=== PATIENT | female | born 1985 | race Caucasian/White ===

== ENCOUNTER 2019-08-12 18:49 | Inpatient (IN) | payer BC, OTHER ==
[2019-08-12] MEDS ORDERED: Promethazine HCl 25 MG/ML VIAL IM PRN ×3 (19:37→23:59)
[2019-08-12] MEDS ORDERED: hydrALAZINE 20 MG/ML VIAL SLOW IVP PRN ×2 (19:37→23:59)
[2019-08-12] MEDS ORDERED: Ondansetron PF 4 MG/2 ML Vial IVP PRN ×3 (19:37→23:59)
[2019-08-12] MEDS ORDERED: Acetaminophen 500 MG TAB PO PRN (19:37)
[2019-08-12] MEDS ORDERED: Lactated Ringer's 1,000 ML IV SCH (19:45)
--- NOTE | 2019-08-12 19:56 | PDOC.LDHP ---
Labor and Delivery H&P Chief complaint: contractions HPI: 34 y/o G4 3003 ar 40 and 1/7 weeks, previous , Breech, in labor, Cervix at 4cm. Pt is opting for a repeat today. Current gestational age (weeks): 40 Due date: 08/11/19 Grav: 4 Para: 3 Current complications: breech Abnormal US findings: No Current medications: pre-modesta vitamins Previous surgical history: low tranverse CS Allergies/Adverse Reactions: Allergies Allergy/AdvReac Type Severity Reaction Status Date / Time No Known Allergies Allergy Verified 08/12/19 19:18 Social history: none - Physical Exam Vital signs reviewed and normal: yes General: NAD, resting Heart: RRR Lungs: CTAB Abdomen: NTTP Extremeties: no edema FHT: category 1 - Assessment L&D Assessment: term patient in labor - Plan Plan: admit to L&D, to OR for section
[2019-08-12 19:58] LABS: Hemoglobin 13.6 g/dL (12.0-16.0); Mean Corpuscular HGB CONC 34.8 g/dL (32.0-36.0); Mean Corpuscular Volume 86.2 fL (78.0-98.0); Mean Platelet Volume 8.7 fL (7.4-10.4); Platelet Count 176 thou/uL (130-400); RBC Distribution Width 12.6 % (11.5-14.5); Red Blood Cell (RBC) Count 4.52 mill/uL (4.20-5.40)
[2019-08-12] MEDS ORDERED: CEFAZOLIN 2 GM in Premix Bag 1 BAG IVPB SCH (20:00)
[2019-08-12] MEDS ORDERED: Bicitra 30 ML UDCUP PO SCH (20:00)
[2019-08-12] MEDS ORDERED: MORPHINE 5 MG/10 ML PF VIAL ONE (20:16)
[2019-08-12] MEDS ORDERED: Fentanyl 100 MCG/2 ML VIAL ONE (20:16)
[2019-08-12] MEDS ORDERED: EPHEDRINE 25 MG/5 ML SYRINGE ONE (20:17)
[2019-08-12] MEDS ORDERED: Oxytocin 10 UNITS/ML VIAL ONE (20:17)
[2019-08-12] MEDS ORDERED: Ketorolac Tromethamine 30 MG/ML VIAL ONE (20:17)
[2019-08-12] MEDS ORDERED: PHENYLEPHRINE-NS 100 MCG/ML 10 ML SYRINGE ONE (20:17)
[2019-08-12] MEDS ORDERED: Ondansetron PF 4 MG/2 ML Vial ONE (20:17)
[2019-08-12 20:38] LABS: Syphilis Antibody Nonreactive (Nonreactive); Syphilis Antibody Index 0.03 S/CO (<1.00 Non-Reactive)
[2019-08-12] MEDS ORDERED: Dexamethasone 4 mg/ml Vial ONE (20:52)
[2019-08-12] MEDS ORDERED: L&D-Morphine 4 MG/ML VIAL SLOW IVP PRN (22:06)
[2019-08-12] MEDS ORDERED: Ondansetron HCl/PF 4 MG/2 ML Vial IVP PRN (22:06)
[2019-08-12] MEDS ORDERED: Naloxone HCl 0.4 mg/ml Vial IV PRN (22:06)
[2019-08-12] MEDS ORDERED: diphenhydrAMINE 50 MG/ML VIAL IVP PRN (22:06)
[2019-08-12] MEDS ORDERED: HYDROmorphone 2 MG/ML VIAL SLOW IVP PRN (22:06)
[2019-08-12] MEDS ORDERED: Naloxone HCl 0.4 mg/ml Vial IVP PRN ×2 (22:06)
[2019-08-12] MEDS ORDERED: Ketorolac Tromethamine 30 MG/ML VIAL IVP PRN (22:06)
[2019-08-12] MEDS ORDERED: Meperidine HCl/PF 25 MG/ML VIAL SLOW IVP PRN (22:06)
[2019-08-12] MEDS ORDERED: Promethazine HCl 25 MG SUPP PR PRN (22:06)
[2019-08-12] MEDS ORDERED: Communication Order-Pharmacy FS SCH (22:15)
[2019-08-12] MEDS ORDERED: Ketorolac Tromethamine 30 MG/ML VIAL IVP SCH (22:15)
[2019-08-12] MEDS ORDERED: NS / Oxytocin 40 units/1000ml 1,000 ML ONE (22:33)
[2019-08-12 23:09] LABS: HBSAg Index 0.15 S/CO (0-0.99); Hep B Surf Ag Non-Reactive S/CO (NonReactive)
[2019-08-12] MEDS ORDERED: diphenhydrAMINE 25 MG CAP PO PRN (23:59)
[2019-08-12] MEDS ORDERED: NS / Oxytocin 40 units/1000ml 1,000 ML IV SCH (23:59)
[2019-08-12] MEDS ORDERED: Lanolin Ointment 7 GM TUBE TOP PRN (23:59)
[2019-08-12] MEDS ORDERED: Misoprostol 200 MCG TAB PR PRN (23:59)
[2019-08-12] MEDS ORDERED: Bisacodyl 10 MG SUPP PR PRN (23:59)
[2019-08-12] MEDS ORDERED: Methylergonovine 0.2 MG/ML VIAL IM PRN (23:59)
[2019-08-13] MEDS ORDERED: Ferrous Sulfate 325 MG TAB PO SCH (00:15)
[2019-08-13 05:54] LABS: Hemoglobin 10.7 g/dL (12.0-16.0); Mean Corpuscular HGB CONC 34.5 g/dL (32.0-36.0); Mean Corpuscular Hemoglobin 30.3 pg (27.0-31.0); Mean Corpuscular Volume 87.9 fL (78.0-98.0); Mean Platelet Volume 8.9 fL (7.4-10.4); Platelet Count 140 thou/uL (130-400); RBC Distribution Width 12.6 % (11.5-14.5); Red Blood Cell (RBC) Count 3.53 mill/uL (4.20-5.40); White Blood Cell (WBC) Count 18.5 thou/uL (4.8-10.8)
--- NOTE | 2019-08-13 07:54 | PDOC.PP ---
Post Progress Note Post Day #: 1 PO intake tolerated: yes Flatus: no Ambulation: no Vital Signs (12 hours) Temp Pulse Resp BP Pulse Ox 08/13/19 06:09 18 08/13/19 04:30 98.3 F 84 18 112/55 L 95 08/13/19 02:20 98.3 F 83 18 117/60 08/13/19 01:10 97.6 F 82 18 107/57 L 08/13/19 00:10 98.7 F 94 20 122/60 95 - Physical Examination General: NAD Cardiovascular: no m/r/g, RRR Respiratory: clear to auscultation bilaterally Abdominal: + bowel sounds, lochia, no distention Extremities: negative homans (B) Skin: CS incision dry & intact, no rash Neurological: no gross focal deficits Psychiatric: A&Ox3, normal affect Result Diagrams: 08/13/19 05:33 Additional Labs: Post Labs Blood Type A POSITIVE 08/12/19 20:21 Hep Bs Antigen Non-Reactive S/CO (NonReactive) 08/12/19 19:49
[2019-08-13] MEDS ORDERED: FLU VACC QS2019-20(6MOS UP)/PF 60 MCG/0.5 ML SYRINGE IM ONE (09:00)
[2019-08-13] MEDS ORDERED: Adacel (T-DAP) 0.5 ML SYRINGE IM ONE (09:00)
[2019-08-13] MEDS ORDERED: Varicella virus, LIVE 0.5 ML VIAL SC ONE (09:00)
[2019-08-13] MEDS ORDERED: Measles/Mumps/Rubella 10 MCG/0.5 ML VIAL SC ONE (09:00)
--- NOTE | 2019-08-13 09:07 | OP ---
DATE OF PROCEDURE: 08/12/2019 DATE OF DELIVERY: 08/12/2019, at 2057 hours. PREOPERATIVE DIAGNOSES: Intrauterine of 40 weeks and 1 day with spontaneous onset of labor, breech presentation, history of previous section. POSTOPERATIVE DIAGNOSES: Intrauterine of 40 weeks and 1 day with spontaneous onset of labor, breech presentation, history of previous section. PROCEDURE PERFORMED: Repeat low-transverse section. FINDINGS: Viable male infant weighing 3200 g or 7 pounds 1 ounce, Apgars of 9 and 9. ESTIMATED BLOOD LOSS: 485 mL. COMPLICATIONS: None. DETAILS OF THE PROCEDURE: The patient was consented and taken back to the operating room where spinal anesthesia was found to be adequate. She was then prepped and draped in the normal sterile fashion. A timeout was performed by the entire operative team. The incision was then marked with a marking pen tested using sharp pickups. An incision was then made with a scalpel. The incision was carried through the adipose tissue down to the underlying rectus fascia using both sharp dissection as well as cautery. Once the fascia was identified, it was incised in the midline and then the fascial incision was carried through in both lateral directions using sharp as well as cautery dissection techniques. Next, the superior aspect of the rectus fascia was grasped with 2 Macarena clamps, which was tented up and the rectus muscles were dissected off using blunt dissection as well as cautery dissection. Similarly, the inferior aspect of the fascial incision was grasped with 2 Macarena clamps, tented up and the rectus muscles were dissected off bluntly as well as sharply. Next, the rectus muscles were in the midline and the peritoneum identified. The peritoneum was then carefully grasped with 2 hemostats and entered sharply. The peritoneal incision was extended superiorly and inferiorly and bladder blade was placed in the lower abdomen. At this point, the uterus was identified and the bladder flap was then developed using pickups with teeth as well as Metzenbaum scissors in both lateral directions. The bladder flap was then dissected downwards using the carbon furnace operator's finger as well as Metzenbaum scissors. The bladder blade was replaced. The lower uterine segment was then identified and entered sharply using a clean scalpel. The uterine incision was then dissected downwards until thin layer of muscle remained and this was entered bluntly using a hemostat to avoid any injury to the baby. The uterine incision was then stretched using two fingers in both lateral directions. An amniotomy was performed artificially using a hemostat and the baby was delivered using fundal pressure in a gentle fashion. Once out, the baby's mouth and nose were bulb suctioned, cord clamped and cut, and the baby was handed to waiting attendants. Next, the uterus was exteriorized, cleared of all clots and debris and the uterine incision was repaired with #1 Monocryl in a running locking fashion. A 2nd suture of the same type was used to obtain complete hemostasis at the uterine incision. The bladder flap was reapproximated using 3-0 Monocryl. Next, patient's left and right adnexa were inspected and appeared to be within normal limits. The posterior cul-de-sac was blotted dry and hemostasis assured. One more look at the uterine incision demonstrated hemostasis. Next, the uterus was replaced back within the abdomen. The peritoneum was reapproximated using 2-0 Monocryl without difficulty. The rectus muscles were then allowed to come back together and 0 chromic was used to aid in reapproximation of the muscle as necessary. The rectus fascia was then reapproximated in a running fashion using 0 Vicryl suture. The adipose tissue was then examined and appeared to be well approximated without any obvious separations. Finally, the skin was reapproximated with 3-0 Monocryl on a Shawn needle without difficulty and Dermabond adhesive was applied to the skin. Once the glue was dry, the drapes were removed and the patient was transferred to an ambulatory bed where she was taken to recovery awake and in stable condition. Sponge, lap, and needle counts were correct x3. PAINT STOCKMAN: Dr. Pablo Hurtado. Job ID: [id number]
[2019-08-13] MEDS: Prenatal Vitamin 1 TAB PO SCH (09:38)
[2019-08-13] MEDS: Ferrous Sulfate 325 MG TAB PO SCH ×3 (09:38→17:52)
[2019-08-13] MEDS: Simethicone Chewable 80 MG TAB PO PRN ×2 (09:44→21:47)
[2019-08-13] MEDS ORDERED: HYDROcodone/Acetaminophen 5/325 mg Tablet PO PRN ×2 (10:15)
[2019-08-13] MEDS ORDERED: Zolpidem Tartrate 5 MG TAB PO PRN (10:15)
[2019-08-13] MEDS: Ibuprofen 800 MG TAB PO SCH (17:47)
[2019-08-13] MEDS ORDERED: Acetaminophen/Codeine 30-300mg Tablet PO PRN ×2 (21:34)
[2019-08-13 22:08] VITALS: BMI 38.9
[2019-08-14] MEDS: Ibuprofen 800 MG TAB PO SCH ×3 (01:51→20:39)
[2019-08-14] MEDS ORDERED: Ibuprofen 800 MG TAB PO SCH (06:00)
[2019-08-14] MEDS: Ferrous Sulfate 325 MG TAB PO SCH ×2 (09:10→17:44)
[2019-08-14] MEDS: Prenatal Vitamin 1 TAB PO SCH (09:11)
[2019-08-14] MEDS: Simethicone Chewable 80 MG TAB PO PRN (09:13)
--- NOTE | 2019-08-14 16:27 | PDOC.PP ---
Post Progress Note Post Day #: 2 PO intake tolerated: yes Flatus: yes Ambulation: yes Vital Signs (12 hours) Temp Pulse Resp BP Pulse Ox 08/14/19 08:40 98.1 F 87 16 100/53 L 99 08/14/19 05:13 98.1 F 88 16 95/52 L Weight Weight 193 lb - Physical Examination General: NAD Cardiovascular: no m/r/g, RRR Respiratory: clear to auscultation bilaterally, non-labored breathing Abdominal: + bowel sounds, lochia, no distention, appropriately TTP Extremities: negative homans (B) Skin: CS incision dry & intact, no rash Neurological: no gross focal deficits Psychiatric: A&Ox3, normal affect (DC to home planned tomorrow) Result Diagrams: 08/13/19 05:33 Additional Labs: Post Labs Blood Type A POSITIVE 08/12/19 20:21 Hep Bs Antigen Non-Reactive S/CO (NonReactive) 08/12/19 19:49
[2019-08-15] MEDS: Ibuprofen 800 MG TAB PO SCH (04:34)
[2019-08-15 08:26] VITALS: BP 100/50; TEMP 98.6
[2019-08-15] MEDS: Prenatal Vitamin 1 TAB PO SCH (09:51)
[2019-08-15] MEDS: Ferrous Sulfate 325 MG TAB PO SCH (09:51)
== END 2019-08-15 12:05 | disposition home or self-care (01) | DRG 788 ==
LOC: L&D/OP 18:49 → L&D 19:37 → 3SW 08-13 00:21
PROVIDERS: ADMIT Obstetrics & Gynecology; ATTEND Obstetrics & Gynecology
PROC: 10D00Z1 Extraction of Products of Conception, Low, Open Approach (ICD-10-PCS; principal; 2019-08-12)
DX: O34.211 Maternal care for low transverse scar from previous cesarean delivery (principal); O32.1XX0 Maternal care for breech presentation, not applicable or unspecified; Z3A.40 40 weeks gestation of pregnancy; Z37.0 Single live birth
CPT/HCPCS: 36415; 85027; 86780; 86850; 86900; 86901; 87340; J0690; J1100; J1885; J2274; J2405; J2590; J3010